=== PATIENT | male | born 1960 | race Caucasian/White ===

== ENCOUNTER 2019-10-31 09:44 | Inpatient (IN) | payer OTHER ==
[~2019-10-31] VITALS: Ht 172.7 cm; Wt 64.0 kg
[2019-10-31 10:35] LABS: Urine Bacteria NONE SEEN /hpf (None Seen); Urine Blood Negative /uL (Negative); Urine Mucus FEW (None Seen); Urine Specific Gravity 1.012 (1.001-1.035); Urine WBC 15 /hpf (0 - 3)
[2019-10-31 10:53] LABS: Basophils # (auto) 0 uL; Basophils % (auto) 0.3 % (0.0-2.0); Eosinophils # (auto) 0 uL; Eosinophils % (auto) 0.1 % (0.0-7.0); Hematocrit 46.5 % (41.0-53.0); Hemoglobin 15.9 g/dL (13.5-17.5); Lymphocytes # (auto) 0.5 uL; Lymphocytes % (auto) 5.2 % (10.0-50.0); Mean Corpuscular Hemoglobin 31.4 pg (28.0-32.0); Mean Corpuscular Hgb Conc. 34.1 g/dL (32.0-36.0); Mean Corpuscular Volume 91.8 fL (80.0-100.0); Monocytes # (auto) 0.8 uL; Neutrophils # (auto) 9.1 uL; Neutrophils % (auto) 86.4 % (37.0-80.0); Platelet Count (auto) 297 10^3/uL (140-450); Red Blood Cells 5.06 10^6/uL (4.5-5.90); Red Cell Distribution Width 13.6 % (11.8-14.3); White Blood Cell 10.5 10^3/uL (4.4-10.8)
[2019-10-31 11:01] LABS: Albumin 4.2 g/dL (3.4-5.0); Calcium 9.5 mg/dL (8.5-10.1); Potassium 4.1 mmol/L (3.5-5.1)
[2019-10-31 11:04] LABS: Bilirubin, Total 0.8 mg/dL (0.2-1.0); Total Protein 8.1 g/dL (6.4-8.2)
[2019-10-31 11:10] LABS: BUN/Creatinine Ratio 21.6
[2019-10-31] MEDS ORDERED: cefTRIAXone 1GM/50ML D5W 50 ML IV ONE (12:30)
[2019-10-31] MEDS ORDERED: MORPHINE SULF INJ 2 MG/ML SYRINGE 1ML IV ONE (12:30)
[2019-10-31] MEDS ORDERED: SODIUM CHLORIDE 0.9% 1,000 ML IVB ONE (12:30)
[2019-10-31] MEDS ORDERED: ONDANSETRON HCL 4 MG/2 ML VIAL IV ONE (12:30)
[2019-10-31 13:01] LABS: Magnesium 2.2 mg/dL (1.6-2.6)
[2019-10-31 13:24] LABS: INR 1.01 (0.9-1.15); Partial Thromboplastin Time 26.2 sec (23.64-32.05)
[2019-10-31] MEDS ORDERED: MORPHINE SULF INJ 2 MG/ML SYRINGE 1ML IV PRN (15:15)
[2019-10-31] MEDS ORDERED: LORazepam 2MG/ML-1ML VIAL IV PRN (15:15)
[2019-10-31] MEDS ORDERED: DEXTROSE (50%) 50ML SYRG IV PRN (15:15)
[2019-10-31] MEDS ORDERED: traMADol HCL 50 MG TAB PO PRN (15:45)
[2019-10-31] MEDS ORDERED: GASTROGRAFIN 120 ML SOL ONE (15:46)
[2019-10-31] MEDS: MORPHINE SULF INJ 2 MG/ML SYRINGE 1ML IV PRN ×2 (16:14→20:57)
[2019-10-31] MEDS: SODIUM CHLORIDE 0.9% 1,000 ML IV SCH (17:30)
[2019-10-31] MEDS: FAMOTIDINE (10MG/ML) 2ML VL IV SCH (17:30)
[2019-10-31] MEDS: PROMETHAZINE HCL 25 MG/ML 1ML IV PRN (17:31)
--- NOTE | 2019-10-31 17:41 | NUR ---
PT ARRIVES UNIT VIA BED. A/OX4. DENIED S/S ACUTE DISTRESS. C/O NAUSEA. MEDICATED PER ORDER.UPDATE PT WITH POC. ORIENTED PT TO ROOM AND MADE COMFORTABLE IN BED. BED AT LOWEST POSITION. CALL LIGHT AND BELONGINGS WITHIN REACH. WILL CONT TO MONITOR.
[2019-10-31] MEDS: ACCU-CHEK COMFORT CURVE STRIP VI SCH (18:00)
[2019-10-31 18:08] VITALS: BP 121/85
--- NOTE | 2019-10-31 18:17 | NUR ---
PT REFUSED NG TUBE PLACEMENT AT THIS TIME.
--- NOTE | 2019-10-31 19:00 | NUR ---
Opening Shift Note Assumed care of patient, awake and alert. No S/S of distress/SOB or pain. Instructed on POC and to call for assist PRN, will continue to monitor for changes Q1hr and PRN.
--- NOTE | 2019-10-31 19:18 | NUR ---
PT RESTING IN BED. NO S/S ACUTE DISTRESS NOTED.ENDORSED CARE TO NIGHT NURSE.
--- NOTE | 2019-10-31 19:30 | NUR ---
Opening Shift Note Assumed care of patient, awake and alert.family on bedside. No S/S of distress/SOB or pain. Instructed on POC and to call for assist PRN, will continue to monitor for changes Q1hr and PRN.
--- NOTE | 2019-10-31 19:45 | NUR ---
Pt nauseated Ozzy hospitalist
--- NOTE | 2019-10-31 20:00 | NUR ---
Received and implemented orders from hospitalist.
[2019-10-31] MEDS: ONDANSETRON HCL 4 MG/2 ML VIAL IV PRN (20:55)
[2019-10-31 22:00] VITALS: BP 137/83
[2019-11-01] MEDS: metroNIDAZOLE 500MG/100ML 100 ML IV SCH ×4 (00:47→22:12)
[2019-11-01] MEDS: PROMETHAZINE HCL 25 MG/ML 1ML IV PRN (00:59)
[2019-11-01] MEDS: MORPHINE SULF INJ 2 MG/ML SYRINGE 1ML IV PRN ×5 (01:00→20:25)
[2019-11-01] MEDS: SODIUM CHLORIDE 0.9% 1,000 ML IV SCH ×3 (01:11→22:11)
[2019-11-01 05:00] VITALS: BP 153/76
[2019-11-01] MEDS: FAMOTIDINE (10MG/ML) 2ML VL IV SCH ×2 (05:19→14:25)
[2019-11-01] MEDS: ONDANSETRON HCL 4 MG/2 ML VIAL IV PRN ×2 (05:19→20:25)
[2019-11-01 05:54] LABS: Basophils # (auto) 0 uL; Basophils % (auto) 0.4 % (0.0-2.0); Eosinophils # (auto) 0 uL; Eosinophils % (auto) 0.4 % (0.0-7.0); Hematocrit 40.3 % (41.0-53.0); Hemoglobin 13.7 g/dL (13.5-17.5); Lymphocytes # (auto) 0.5 uL; Lymphocytes % (auto) 12.9 % (10.0-50.0); Mean Corpuscular Hemoglobin 31.4 pg (28.0-32.0); Mean Corpuscular Hgb Conc. 33.8 g/dL (32.0-36.0); Mean Corpuscular Volume 92.7 fL (80.0-100.0); Monocytes # (auto) 0.7 uL; Monocytes % (auto) 17.2 % (0.0-12.0); Neutrophils # (auto) 2.9 uL; Neutrophils % (auto) 69.1 % (37.0-80.0); Platelet Count (auto) 240 10^3/uL (140-450); Red Blood Cells 4.35 10^6/uL (4.5-5.90); Red Cell Distribution Width 13.3 % (11.8-14.3); White Blood Cell 4.2 10^3/uL (4.4-10.8)
[2019-11-01] MEDS: ACCU-CHEK COMFORT CURVE STRIP VI SCH ×4 (06:00→18:00)
[2019-11-01 06:20] LABS: Albumin 3.2 g/dL (3.4-5.0); Calcium 8.3 mg/dL (8.5-10.1); Potassium 3.7 mmol/L (3.5-5.1)
[2019-11-01 06:24] LABS: Bilirubin, Total 0.5 mg/dL (0.2-1.0); Total Protein 6.5 g/dL (6.4-8.2)
--- NOTE | 2019-11-01 07:40 | NUR ---
Opening Shift Note Assumed care of patient, awake and alert X4. No S/S of distress/SOB or pain. Insructed on POC and to call for assist PRN Call tight within reach, will continue to monitor for changes Q1hr and PRN.
[2019-11-01 08:00] VITALS: BP 120/72
[2019-11-01] MEDS: cefTRIAXone 1GM/50ML D5W 50 ML IV SCH (09:25)
--- NOTE | 2019-11-01 10:19 | NUR ---
patient refused ng tube Patient refusing NG tube due to pain patient informed on use and benefits, DR. Kennedy BASS AT BEDSIDE.
[2019-11-01 12:00] VITALS: BP 115/71
--- NOTE | 2019-11-01 14:20 | NUR ---
DR. Black at bedside.
[2019-11-01] MEDS ORDERED: SORE THROAT SPRAY 6OZ BOTTLE MT PRN (14:30)
[2019-11-01] MEDS ORDERED: BENZOCAINE (DENTAL) 20 % SPRAY 60ML MT ONE (16:00)
--- NOTE | 2019-11-01 16:15 | NUR ---
Rounds Patient comfortably resting in bed, no s/s of distress/sob noted/stated.
[2019-11-01 17:00] VITALS: BP 126/76
--- NOTE | 2019-11-01 17:53 | NUR ---
Nasogastric tube insertion Patient educated on need for NG tube. All questions addressed. NGT inserted per MD order. Chest xray ordered. Addendum: 11/01/19 at 1923 by Marilia Lang RN 18:15 NG TUBE WAS PLACED IN RIGHT NARE, AT 65CM. PATIENT TOLERATED WELL. AWAITING CHEST X-RAY REPORT. ROBERTO CASANOVA AWARE.
--- NOTE | 2019-11-01 19:23 | NUR ---
CLOSING NOTE PATIENT IS COMFORTABLY RESTING IN BED. NO S/S OF DISTRESS/SOB NOTED/STATED. BED AT LOWEST LOCKED POSITION AND CALL LIGHT WITHIN REACH. CARE ENDORSED TO NOC RN.
--- NOTE | 2019-11-01 19:33 | NUR ---
Connected pt on low continuous suction per doctor order after radiology placement confirmation. Pt tolerating well.
[2019-11-01 22:00] VITALS: BP 127/76
[2019-11-02] MEDS: MORPHINE SULF INJ 2 MG/ML SYRINGE 1ML IV PRN ×5 (02:42→22:34)
[2019-11-02 05:00] VITALS: BP 130/80
[2019-11-02] MEDS: FAMOTIDINE (10MG/ML) 2ML VL IV SCH ×2 (05:15→13:23)
[2019-11-02] MEDS: metroNIDAZOLE 500MG/100ML 100 ML IV SCH ×3 (05:40→22:34)
[2019-11-02] MEDS: ACCU-CHEK COMFORT CURVE STRIP VI SCH ×5 (06:00→23:51)
--- NOTE | 2019-11-02 07:00 | NUR ---
Opening Shift Note Assumed care of patient, awake and alert. No S/S of distress/SOB or pain. Insructed on POC and to call for assist PRN call light within reach, will continue to monitor for changes Q1hr and PRN.
[2019-11-02 08:00] VITALS: BP 134/75
[2019-11-02] MEDS: cefTRIAXone 1GM/50ML D5W 50 ML IV SCH (09:28)
[2019-11-02] MEDS: D5W/SOD CHLO 0.9% 1,000 ML IV SCH ×2 (09:31→18:30)
--- NOTE | 2019-11-02 10:35 | NUR ---
ss consult Per ss consult needs PCP. Rosie Luna to see patient for PCP. Addendum: 11/02/19 at 1036 by Rosie BROWN Amended: Links added.
[2019-11-02 12:00] VITALS: BP 123/72
--- NOTE | 2019-11-02 13:05 | NUR ---
NG TUBE PLACEMENT ADVANCED NASOGASTRIC TUBE 10CM PER RADIOLOGY RECHECKED PLACEMENT WITH AIR AND ORDERED NEW X RAY STAT
--- NOTE | 2019-11-02 15:14 | NUR ---
NUTRITION ASSESSMENT NOTES Please refer to link notes of nutrition screen form filed under the intervention section of the plan of care for further details. Est. Needs: 1600 kcal to 1900 kcal (25-30 kcal/kgBW), 64 gms to 77 gms pro (1.0-1.2 gms/kgBW). Will continue to monitor pertinent labs and reassess nutrient need prn Thank you. Addendum: 11/02/19 at [address] Amended: Links added.
[2019-11-02 17:00] VITALS: BP 137/76
--- NOTE | 2019-11-02 19:07 | NUR ---
closing note Patient is comfortably resting in bed. NG tube connected to LCS, no c/o pain. no s/s of distress noted/stated. Bed at lowest locked position and call light within reach. Family at bedside. Will endorse care to NOC RN.
--- NOTE | 2019-11-02 19:30 | NUR ---
Opening Shift Note Received report from oniel Albarran RN. Assumed care of patient, awake and alert. No S/S of distress/SOB but complaints of slight pain across abdomen. NG tube in placed with light yellow mucousy fluid. Will give pain medication as ordered. Instructed on POC and to call for assist PRN, will continue to monitor for changes Q1hr and PRN. Bed placed in lowest position and call light within reach.
[2019-11-02 20:00] VITALS: BP 127/77
[2019-11-02 22:00] VITALS: BP 127/77
[2019-11-02] MEDS: PROMETHAZINE HCL 25 MG/ML 1ML IV PRN (23:45)
[2019-11-03] MEDS: D5W/SOD CHLO 0.9% 1,000 ML IV SCH ×2 (02:19→14:59)
[2019-11-03] MEDS: FAMOTIDINE (10MG/ML) 2ML VL IV SCH ×2 (04:04→14:43)
[2019-11-03 05:00] VITALS: BP 94/55
[2019-11-03] MEDS: metroNIDAZOLE 500MG/100ML 100 ML IV SCH ×3 (06:00→21:17)
[2019-11-03] MEDS: ACCU-CHEK COMFORT CURVE STRIP VI SCH ×3 (06:10→17:30)
--- NOTE | 2019-11-03 06:36 | NUR ---
PATIENT SELF CATH TWICE FOR THE SHIFT, TOTAL OF 700ML OF YELLOW URINE WITH SOME SEDIMENTS. NO DISTRESS NOTED.
--- NOTE | 2019-11-03 06:38 | NUR ---
NG TUBE OUTPUT NG TUBE OUTPUT IS 160ML OF LIGHT YELLOWISH WITH SOME MUCOUS SEDIMENTS. PATIENT IS ALERT AND AWAKE, NO DISTRESS NOTED AND PATIENT DENIES PAIN AND NAUSEA THIS MORNING. WILL MONITOR
[2019-11-03 08:00] VITALS: BP 120/67
[2019-11-03] MEDS: cefTRIAXone 1GM/50ML D5W 50 ML IV SCH (09:34)
--- NOTE | 2019-11-03 09:47 | NUR ---
Phone call received from Dr. Brown Orders received for PT and left hip/pelvis x-ray. No bed available at [facility] for transfer. Addendum: 11/03/19 at 1009 by KAVON TANG RN Incorrect entry, wrong patient
--- NOTE | 2019-11-03 10:00 | NUR ---
Dr. Juarez at bedside.
[2019-11-03] MEDS ORDERED: FUROSEMIDE 40 MG/4 ML VIAL IV ONE (10:30)
[2019-11-03 12:59] VITALS: BP 122/70
[2019-11-03] MEDS: POTASSIUM CHLORIDE 40 MEQ, LIDOCAINE 1% (LOCAL ANESTH.) 4 ML in SODIUM CHL 0.9% 100 ML IV ONE ×2 (13:00→13:28)
--- NOTE | 2019-11-03 16:37 | NUR ---
IV Fluids Received telephone order from Dr. Juarez to administer N/S with 20 MEQ KCL. and repeat BNP in the AM.
[2019-11-03 17:00] VITALS: BP 122/74
[2019-11-03] MEDS: ONDANSETRON HCL 4 MG/2 ML VIAL IV PRN (17:20)
[2019-11-03] MEDS: MORPHINE SULF INJ 2 MG/ML SYRINGE 1ML IV PRN (17:21)
--- NOTE | 2019-11-03 19:15 | NUR ---
Opening Shift Note Received report from oniel Aaron RN. Assumed care of patient, awake and alert. Patient still has NG tube connected to low continuous suction. No S/S of distress/SOB or pain. Instructed on POC and to call for assist PRN, will continue to monitor for changes Q1hr and PRN. Bed placed in lowest position and call light within reach.
[2019-11-03 20:00] VITALS: BP 125/71
[2019-11-03] MEDS: SOD CHL 0.9%/ KCL 20MEQ 1,000 ML IV SCH (21:17)
[2019-11-03 22:00] VITALS: BP 125/71
[2019-11-04] MEDS: FAMOTIDINE (10MG/ML) 2ML VL IV SCH ×2 (03:15→13:39)
[2019-11-04 05:00] VITALS: BP 133/79
[2019-11-04] MEDS: metroNIDAZOLE 500MG/100ML 100 ML IV SCH (05:34)
[2019-11-04] MEDS: SOD CHL 0.9%/ KCL 20MEQ 1,000 ML IV SCH ×3 (06:00→20:24)
[2019-11-04 06:14] LABS: Potassium 3.6 mmol/L (3.5-5.1)
[2019-11-04] MEDS: ACCU-CHEK COMFORT CURVE STRIP VI SCH ×4 (06:25→19:34)
--- NOTE | 2019-11-04 06:41 | NUR ---
NG TUBE OUTPUT NG TUBE OUTPUT IS 230ML OF LIGHT YELLOWISH WITH SOME MUCOUS SEDIMENTS. PATIENT IS ALERT AND AWAKE, NO DISTRESS NOTED AND PATIENT DENIES PAIN AND NAUSEA THIS MORNING. WILL MONITOR
--- NOTE | 2019-11-04 07:30 | NUR ---
Opening Shift Note Assumed care of patient, awake and alert, sitting up in bed. No S/S of distress/SOB or pain. NGT remained in place and NPO status maintained. Patient may have ice chips. Instructed on POC and to call for assist PRN, will continue to monitor for changes Q1hr and PRN.
--- NOTE | 2019-11-04 07:50 | NUR ---
Off Unit Patient at [facility] for renal scan.
--- NOTE | 2019-11-04 09:13 | NUR ---
Hospitalist Erickaing Dr. Juarez at bedside.
--- NOTE | 2019-11-04 09:15 | NUR ---
Dr. Black pageblair
--- NOTE | 2019-11-04 09:19 | NUR ---
Dr. Sofia Black returned telephone call. Orders received to D/C NGT and give clear liquids.
--- NOTE | 2019-11-04 09:30 | NUR ---
NGT removal NGT removed per MD order following explanation and instruction to patient. Patient verbalized understanding prior to removal. Patient tolerated well.
[2019-11-04] MEDS: cefTRIAXone 1GM/50ML D5W 50 ML IV SCH (09:50)
[2019-11-04] MEDS: ONDANSETRON HCL 4 MG/2 ML VIAL IV PRN (11:18)
--- NOTE | 2019-11-04 11:56 | NUR ---
Nutrition Follow-up Notes Wt.: 64.3 kg as of yesterday. Pt's asleep, no signs of distress when rounded this morning. Pt was NPO earlier, noted PSBO is improved, discontinued NGT, per MD's order and to start today on Clear Liquid diet. Est. Needs: 1600 kcal to 1900 kcal (25-30 kcal/kgBW), 64 gms to 77 gms pro (1.0-1.2 gms/kgBW). Will continue to monitor pertinent labs and reassess nutrient need prn Labs: Na 147 H, Cl 117 H, Ca 8.6 L; Alb 3.2 Skin: Girish scale 23, low risk, skin intact per metal gauge maker. GI: Pt had 2x BM yesterday per metal gauge maker. PES: Partially resolved: Increased nutrient needs r/t acute/chronic medical condition aeb Acute abdominal pain,Small bowel obstruction,Urinary (tract) obstruction, mild hypoalbuminemia, NPO. Altered nutrition related lab values r/t current/chronic medical condition aeb hyperchloremia, elev. BUN, hypocalcemia and mild hypoalbuminemia Will continue to monitor PO intake, skin status, pertinent labs and weight trend. F/u in 2 to 3 days. Rec.: 1.) Advance gradually oral diet when medically appropriate. 2.) If still on Clear Liquid diet, consider Ensure Clear 1 carton TID. 3.) Continue close supervision during meals. 4.) If Albumin continues trending down, consider Prostat 1 pkt BID. 5.) Refer pt to RD for further nutrition education and weight monitoring upon discharge. 6.) Continue current plan of care.
[2019-11-04 12:00] VITALS: BP 120/73
[2019-11-04] MEDS: PROMETHAZINE HCL 25 MG/ML 1ML IV PRN ×2 (13:56→17:14)
[2019-11-04] MEDS: MORPHINE SULF INJ 2 MG/ML SYRINGE 1ML IV PRN (13:56)
[2019-11-04] MEDS ORDERED: KETOROLAC TROMETH 30 MG/ML 1ML VIAL IV PRN (14:45)
[2019-11-04 17:00] VITALS: BP 124/79
[2019-11-04 21:42] VITALS: BP 127/80
--- NOTE | 2019-11-05 | NUR ---
PROVIDED PATIENT WITH ADDITIONAL CATHETER'S FOR PERSONAL USE.
[2019-11-05] MEDS: ACCU-CHEK COMFORT CURVE STRIP VI SCH ×3 (00:06→11:29)
[2019-11-05] MEDS: FAMOTIDINE (10MG/ML) 2ML VL IV SCH ×2 (03:15→15:15)
[2019-11-05 04:52] VITALS: BP 131/81
--- NOTE | 2019-11-05 07:43 | NUR ---
Opening Shift Note Assumed care of patient, awake and alert, sitting up in bed uncomplaining. No S/S of distress/SOB or pain. Instructed on POC and to call for assist PRN, will continue to monitor for changes Q1hr and PRN.
[2019-11-05] MEDS: cefTRIAXone 1GM/50ML D5W 50 ML IV SCH (09:17)
[2019-11-05] MEDS: ONDANSETRON HCL 4 MG/2 ML VIAL IV PRN (09:17)
[2019-11-05 09:36] VITALS: BP 122/76
--- NOTE | 2019-11-05 10:10 | NUR ---
Hospitalist Rounding Dr. Juarez rounded on patient. Patient for discharge if cleared by urologist.
[2019-11-05] MEDS: SOD CHL 0.9%/ KCL 20MEQ 1,000 ML IV SCH (11:29)
[2019-11-05 13:00] VITALS: BP 130/79
--- NOTE | 2019-11-05 13:39 | NUR ---
Urologist Called and left message for BEBETO Nelson.
[2019-11-05] MEDS ORDERED: PANTOPRAZOLE 40 MG/10 ML VIAL INJ IV ONE (14:00)
[2019-11-05] MEDS: PROMETHAZINE HCL 25 MG/ML 1ML IV PRN (14:00)
[2019-11-05] MEDS ORDERED: MORPHINE SULF INJ 2 MG/ML SYRINGE 1ML IV ONE (14:00)
--- NOTE | 2019-11-05 15:15 | NUR ---
Urologist Urologist (Omar) rounded on patient. Cleared for discharge.
[2019-11-05 16:33] VITALS: BP 130/79
[2019-11-05 16:51] VITALS: BP 122/74
--- NOTE | 2019-11-05 17:15 | NUR ---
Discharge instructions given as ordered. Encourage to follow up with PMD as instructed. All questions and concerns addressed. Patient verbalized understanding. Medication reconciliation form completed and copy given to patient. IV removed with catheter intact and pressure dressing applied. Patient in room awaiting transportation.
--- NOTE | 2019-11-05 18:15 | NUR ---
Patient already left for home.
== END 2019-11-05 18:00 | disposition home or self-care (01) | DRG 683 ==
LOC: ER 09:44 → OVERFLOW 09:45 → CENTRAL 17:09
PROVIDERS: ADMIT Internal Medicine; ATTEND Family Medicine
DX: N17.9 Acute kidney failure, unspecified (principal); K56.600 Partial intestinal obstruction, unspecified as to cause; K56.7 Ileus, unspecified; N13.6 Pyonephrosis; F17.210 Nicotine dependence, cigarettes, uncomplicated; F12.90 Cannabis use, unspecified, uncomplicated; E86.0 Dehydration; N28.1 Cyst of kidney, acquired; F41.9 Anxiety disorder, unspecified; R73.9 Hyperglycemia, unspecified; Z92.21 Personal history of antineoplastic chemotherapy; Z85.51 Personal history of malignant neoplasm of bladder; Z82.49 Family history of ischemic heart disease and other diseases of the circulatory system; Z90.6 Acquired absence of other parts of urinary tract; Z90.79 Acquired absence of other genital organ(s); Z87.440 Personal history of urinary (tract) infections; Z83.3 Family history of diabetes mellitus; Z79.899 Other long term (current) drug therapy
CPT/HCPCS: 36415; 71045; 74018; 74176; 74250; 78707; 80048; 80053; 81001; 82150; 82962; 83036; 83690; 83735; 84132; 85025; 85610; 85730; 87086; 96365; 96375; C9113; G0378; J0696; J1885; J2001; J2405; J3490; J7042

== ENCOUNTER → 2019-11-18 | Outpatient (CLI) | payer OTHER | END | disposition home or self-care (01) | LOC: LAB 09:30 | PROVIDERS: ATTEND Internal Medicine | DX: Z12.11 Encounter for screening for malignant neoplasm of colon (principal); R73.9 Hyperglycemia, unspecified | CPT/HCPCS: 36415; 84443 ==

== ENCOUNTER → 2019-11-26 | Outpatient (CLI) | payer OTHER | END | disposition home or self-care (01) | LOC: LAB 11:19 | PROVIDERS: ATTEND Internal Medicine | DX: Z12.11 Encounter for screening for malignant neoplasm of colon (principal); R73.9 Hyperglycemia, unspecified | CPT/HCPCS: 82270 ==

== ENCOUNTER 2020-04-22 12:55 | Inpatient (IN) | payer OTHER ==
[~2020-04-22] VITALS: Ht 172.7 cm; Wt 61.0 kg
[2020-04-22] MEDS ORDERED: SODIUM CHLORIDE 0.9% 1,000 ML IV ONE (13:45)
[2020-04-22 13:49] LABS: Urine WBC None Seen /hpf (0 - 3)
[2020-04-22 13:54] LABS: Urine Bacteria NONE SEEN /hpf (None Seen); Urine Blood TRACE /uL (Negative); Urine Specific Gravity 1.015 (1.001-1.035)
[2020-04-22] MEDS ORDERED: KETOROLAC TROMETH 30 MG/ML 1ML VIAL IV ONE (14:00)
[2020-04-22] MEDS ORDERED: ONDANSETRON HCL 4 MG/2 ML VIAL IV ONE (14:00)
[2020-04-22 14:40] LABS: Basophils # (auto) 0 10 ^3/uL (0-0.2); Basophils % (auto) 0.2 % (0.0-2.0); Eosinophils # (auto) 0 10 ^3/uL (0-0.8); Hematocrit 51.7 % (41.0-53.0); Hemoglobin 17.4 g/dL (13.5-17.5); Lymphocytes # (auto) 0.4 10 ^3/uL (0.4-5.4); Lymphocytes % (auto) 4.3 % (10.0-50.0); Mean Corpuscular Hemoglobin 30.1 pg (28.0-32.0); Mean Corpuscular Hgb Conc. 33.7 g/dL (32.0-36.0); Mean Corpuscular Volume 89.3 fL (80.0-100.0); Monocytes # (auto) 1.2 10 ^3/uL (0-1.3); Monocytes % (auto) 13.2 % (0.0-12.0); Neutrophils # (auto) 7.3 10 ^3/uL (1.6-8.6); Neutrophils % (auto) 82.3 % (37.0-80.0); Platelet Count (auto) 282 10^3/uL (140-450); Red Blood Cells 5.79 10^6/uL (4.5-5.90); White Blood Cell 8.9 10^3/uL (4.4-10.8)
[2020-04-22 14:59] LABS: Potassium 3.9 mmol/L (3.5-5.1)
[2020-04-22 15:04] LABS: Albumin 4.1 g/dL (3.4-5.0); Calcium 9.9 mg/dL (8.5-10.1)
[2020-04-22 15:07] LABS: Bilirubin, Total 0.9 mg/dL (0.2-1.0); Total Protein 8.5 g/dL (6.4-8.2)
[2020-04-22] MEDS ORDERED: SODIUM CHLORIDE 0.9% 1,750 ML IV ONE (15:30)
[2020-04-22] MEDS ORDERED: DEXTROSE (50%) 50ML SYRG IV PRN (15:45)
[2020-04-22] MEDS ORDERED: cefTRIAXone 1GM/50ML D5W 50 ML IV ONE (15:45)
[2020-04-22 15:52] LABS: Amylase 141 U/L (25-115); Lipase 172 U/L (73-393)
[2020-04-22] MEDS: SODIUM CHLORIDE 0.9% 1,000 ML IV SCH ×2 (18:47→23:48)
[2020-04-22] MEDS: MORPHINE SULF INJ 2 MG/ML SYRINGE 1ML IV PRN ×2 (18:59→23:37)
[2020-04-22] MEDS: PROMETHAZINE HCL 25 MG/ML 1ML IV PRN ×2 (19:00→23:37)
[2020-04-22] MEDS: ACCU-CHEK COMFORT CURVE STRIP VI SCH (19:10)
--- NOTE | 2020-04-22 20:00 | NUR ---
MS admit from ER CLAUDIA FLAHERTY admitted to tele/MS after SBAR received. Patient oriented to MARY HAY, RN primary RN, unit, room, bed, and unit policies regarding patient care and visiting hours. Patient weighed by bed scale and encouraged to call if they need something. All questions and concerns addressed, patient verbalized understanding. Note: NG tube in place. Patient connected to LIS. IV is patent; running 125 ml/h NaCl 0.9%. NPO. SpO2 100% on 4 LPM. Bed in lowest position. Call light within reach.
[2020-04-22 20:11] VITALS: BP 113/75
[2020-04-22 22:21] VITALS: BP 105/83
[2020-04-22] MEDS: metroNIDAZOLE 500MG/100ML 100 ML IV SCH (22:30)
[2020-04-23 05:00] VITALS: BP 98/67
[2020-04-23] MEDS: ACCU-CHEK COMFORT CURVE STRIP VI SCH ×4 (05:49→18:18)
[2020-04-23] MEDS: metroNIDAZOLE 500MG/100ML 100 ML IV SCH ×3 (05:59→21:40)
[2020-04-23 06:26] LABS: Basophils # (auto) 0 10 ^3/uL (0-0.2); Basophils % (auto) 0.1 % (0.0-2.0); Eosinophils # (auto) 0 10 ^3/uL (0-0.8); Eosinophils % (auto) 0.3 % (0.0-7.0); Hematocrit 45.8 % (41.0-53.0); Hemoglobin 15.4 g/dL (13.5-17.5); Lymphocytes # (auto) 0.6 10 ^3/uL (0.4-5.4); Lymphocytes % (auto) 10.1 % (10.0-50.0); Mean Corpuscular Hemoglobin 30.5 pg (28.0-32.0); Mean Corpuscular Hgb Conc. 33.5 g/dL (32.0-36.0); Mean Corpuscular Volume 90.8 fL (80.0-100.0); Monocytes # (auto) 0.7 10 ^3/uL (0-1.3); Monocytes % (auto) 13.3 % (0.0-12.0); Neutrophils # (auto) 4.2 10 ^3/uL (1.6-8.6); Neutrophils % (auto) 76.2 % (37.0-80.0); Platelet Count (auto) 228 10^3/uL (140-450); Red Blood Cells 5.05 10^6/uL (4.5-5.90); White Blood Cell 5.5 10^3/uL (4.4-10.8)
--- NOTE | 2020-04-23 06:50 | NUR ---
NG tube drain 180 ml of dark brown fluid suctioned from NG tube for 10 hrs.
[2020-04-23 06:59] LABS: Potassium 3.6 mmol/L (3.5-5.1)
[2020-04-23 07:16] LABS: Albumin 3.7 g/dL (3.4-5.0); BUN/Creatinine Ratio 27.3; Bilirubin, Total 0.4 mg/dL (0.2-1.0); Calcium 8.6 mg/dL (8.5-10.1); Total Protein 7.7 g/dL (6.4-8.2)
[2020-04-23] MEDS: SODIUM CHLORIDE 0.9% 1,000 ML IV SCH ×2 (07:30→15:30)
[2020-04-23] MEDS: PROMETHAZINE HCL 25 MG/ML 1ML IV PRN (08:30)
[2020-04-23] MEDS: MORPHINE SULF INJ 2 MG/ML SYRINGE 1ML IV PRN ×2 (08:30→20:44)
[2020-04-23 09:00] VITALS: BP 130/90
[2020-04-23] MEDS: PANTOPRAZOLE 40 MG/10 ML VIAL INJ IV SCH (09:43)
[2020-04-23] MEDS: cefTRIAXone 1GM/50ML D5W 50 ML IV SCH (09:43)
[2020-04-23] MEDS ORDERED: GASTROGRAFIN 120 ML SOL ONE ×2 (10:29→11:32)
[2020-04-23 10:31] LABS: Protein, Urine 115.8 mg/dL (0.0-11.9)
[2020-04-23] MEDS ORDERED: PROMETHAZINE HCL 25 MG/ML 1ML IM ONE (11:30)
[2020-04-23] MEDS ORDERED: PROMETHAZINE HCL 25 MG/ML 1ML IV ONE (11:45)
[2020-04-23 13:00] VITALS: BP 148/77
--- NOTE | 2020-04-23 15:30 | NUR ---
Hospitalist at bedside, aware of patient status including patient having multiple episodes of vomiting despite antinausea medication administration. New orders for antiemetics received, orders read back and verified. Will carry out new orders and cont to monitor patient.
[2020-04-23] MEDS: ONDANSETRON HCL 4 MG/2 ML VIAL IV PRN ×2 (16:12→20:45)
[2020-04-23 17:00] VITALS: BP 137/75
--- NOTE | 2020-04-23 18:18 | NUR ---
Opening Shift Note Assumed care of patient, awake and alert. No S/S of distress/SOB or pain. Instructed on POC and to call for assist PRN, will continue to monitor for changes Q1hr and PRN. Fall precautions in place per safety protocol.
[2020-04-23 18:52] LABS: INR 1.04 (0.9-1.15)
--- NOTE | 2020-04-23 19:17 | NUR ---
Endorsed care to night RN Tiny including status of NG Tube suctioning unknown due to no report on Small bowel series. Per X-Ray tech, they would call to notify if we can connect patient back on suction but no call received. This nurse attempted contacting X-Ray tech but no answer and no report on SBS found.
--- NOTE | 2020-04-23 19:20 | NUR ---
Opening Shift Note Assumed care of patient. Patient is awake, alert, and oriented X 4. No S/S of respiratory distress noted. Respirations are regular, non-labored. No pain, nausea, or vomiting reported. Pt is on RA. NG tube is in L. nostril, intact, and not connected to bed suction at this moment . Bed in lowest possible position, brakes locked, side rails up X 2, call light within reach. POC discussed with the patient. Patient instructed to call for assistance PRN. Will continue to monitor for changes Q1hr and PRN.
[2020-04-23 20:00] VITALS: BP 153/84
[2020-04-23 22:00] VITALS: BP 150/84
[2020-04-24] MEDS: SODIUM CHLORIDE 0.9% 1,000 ML IV SCH ×2 (00:01→07:30)
[2020-04-24] MEDS: ACCU-CHEK COMFORT CURVE STRIP VI SCH ×5 (00:02→23:59)
[2020-04-24] MEDS: MORPHINE SULF INJ 2 MG/ML SYRINGE 1ML IV PRN ×5 (03:13→20:28)
[2020-04-24] MEDS: PROCHLORPERAZINE EDISYLATE 5 MG/ML 2ML VIAL IV PRN ×3 (03:13→20:27)
[2020-04-24 05:00] VITALS: BP 117/68
[2020-04-24] MEDS: metroNIDAZOLE 500MG/100ML 100 ML IV SCH ×3 (05:43→23:23)
[2020-04-24 07:53] LABS: Basophils # (auto) 0 10 ^3/uL (0-0.2); Basophils % (auto) 0.2 % (0.0-2.0); Eosinophils # (auto) 0 10 ^3/uL (0-0.8); Eosinophils % (auto) 0.1 % (0.0-7.0); Hematocrit 49.2 % (41.0-53.0); Hemoglobin 16.4 g/dL (13.5-17.5); Lymphocytes # (auto) 0.7 10 ^3/uL (0.4-5.4); Lymphocytes % (auto) 10.9 % (10.0-50.0); Mean Corpuscular Hemoglobin 30.2 pg (28.0-32.0); Mean Corpuscular Hgb Conc. 33.2 g/dL (32.0-36.0); Mean Corpuscular Volume 90.8 fL (80.0-100.0); Monocytes # (auto) 0.9 10 ^3/uL (0-1.3); Monocytes % (auto) 13.5 % (0.0-12.0); Neutrophils # (auto) 5.1 10 ^3/uL (1.6-8.6); Neutrophils % (auto) 75.3 % (37.0-80.0); Nucleated Red Blood Cells % 0.2 %; Platelet Count (auto) 278 10^3/uL (140-450); Red Blood Cells 5.42 10^6/uL (4.5-5.90); Red Cell Distribution Width 15.5 % (11.8-14.3); White Blood Cell 6.7 10^3/uL (4.4-10.8)
[2020-04-24 08:00] VITALS: BP 150/81
[2020-04-24 08:08] LABS: Albumin 3.9 g/dL (3.4-5.0); Potassium 3.7 mmol/L (3.5-5.1)
[2020-04-24 08:13] LABS: Bilirubin, Total 0.3 mg/dL (0.2-1.0); Phosphorus 3.8 mg/dL (2.5-4.90); Total Protein 7.7 g/dL (6.4-8.2)
[2020-04-24] MEDS: PANTOPRAZOLE 40 MG/10 ML VIAL INJ IV SCH (08:38)
[2020-04-24] MEDS: cefTRIAXone 1GM/50ML D5W 50 ML IV SCH (08:38)
[2020-04-24] MEDS: D5W/SOD CHL 0.45%/KCL 20MEQ 1,000 ML IV SCH (12:57)
[2020-04-24] MEDS: ONDANSETRON HCL 4 MG/2 ML VIAL IV PRN (12:58)
[2020-04-24 13:18] VITALS: BP 143/80
[2020-04-24 17:13] VITALS: BP 149/91
[2020-04-24 20:00] VITALS: BP 145/91
[2020-04-24 23:43] VITALS: BP 143/91
[2020-04-25] MEDS: MORPHINE SULF INJ 2 MG/ML SYRINGE 1ML IV PRN ×8 (00:30→22:36)
[2020-04-25] MEDS: PROCHLORPERAZINE EDISYLATE 5 MG/ML 2ML VIAL IV PRN ×5 (00:31→22:36)
--- NOTE | 2020-04-25 04:00 | NUR ---
TOTAL NASOGASTRIC TUBE DRAINAGE IS 150ML OF GREENISH FLUID. PATIENT CONTINUES TO HAVE ABDOMINAL PAIN OF 8/10. PAIN MEDICATION GIVEN ORDERED WITH GOOD RELIEF.
[2020-04-25] MEDS: D5W/SOD CHL 0.45%/KCL 20MEQ 1,000 ML IV SCH (04:46)
[2020-04-25 05:33] VITALS: BP 146/85
[2020-04-25] MEDS: ACCU-CHEK COMFORT CURVE STRIP VI SCH ×4 (06:00→23:45)
[2020-04-25 06:24] LABS: Basophils # (auto) 0 10 ^3/uL (0-0.2); Basophils % (auto) 0.1 % (0.0-2.0); Eosinophils # (auto) 0 10 ^3/uL (0-0.8); Eosinophils % (auto) 0.5 % (0.0-7.0); Hematocrit 47.4 % (41.0-53.0); Hemoglobin 15.8 g/dL (13.5-17.5); Lymphocytes # (auto) 0.8 10 ^3/uL (0.4-5.4); Lymphocytes % (auto) 8.6 % (10.0-50.0); Mean Corpuscular Hemoglobin 30.5 pg (28.0-32.0); Mean Corpuscular Hgb Conc. 33.3 g/dL (32.0-36.0); Mean Corpuscular Volume 91.8 fL (80.0-100.0); Monocytes % (auto) 10.7 % (0.0-12.0); Neutrophils # (auto) 7.2 10 ^3/uL (1.6-8.6); Neutrophils % (auto) 80.1 % (37.0-80.0); Nucleated Red Blood Cells % 0.1 %; Platelet Count (auto) 225 10^3/uL (140-450); Red Blood Cells 5.16 10^6/uL (4.5-5.90); Red Cell Distribution Width 15.6 % (11.8-14.3)
[2020-04-25] MEDS: metroNIDAZOLE 500MG/100ML 100 ML IV SCH ×3 (06:33→21:28)
[2020-04-25 06:42] LABS: Potassium 3.9 mmol/L (3.5-5.1)
[2020-04-25 06:56] LABS: Albumin 3.5 g/dL (3.4-5.0); BUN/Creatinine Ratio 35.8; Bilirubin, Total 0.3 mg/dL (0.2-1.0); Calcium 8.6 mg/dL (8.5-10.1)
--- NOTE | 2020-04-25 07:30 | NUR ---
Opening Shift Note Assuming care of patient at this time. Patient is resting in bed. No signs or symptoms of distress or shortness of breath. Bed is locked and lowered with side rails up x2. Instructed patient on the plan of care for today and to call for assistance as needed. Call light within reach. Will continue to round hourly and as needed.
[2020-04-25] MEDS: PANTOPRAZOLE 40 MG/10 ML VIAL INJ IV SCH (09:23)
[2020-04-25] MEDS: cefTRIAXone 1GM/50ML D5W 50 ML IV SCH (09:24)
[2020-04-25] MEDS: ONDANSETRON HCL 4 MG/2 ML VIAL IV PRN (09:34)
[2020-04-25 09:36] VITALS: BP 152/94
--- NOTE | 2020-04-25 12:35 | NUR ---
Nutrition Assessment Notes Please refer to link for full assessment notes. Est Energy needs: 5279-1007 kcals (25-30 kcal/kgBW) Est Protein needs: 49-61 gms/day (0.8-1.0 gm/kgBW) Will continue to monitor and reassess prn. Addendum: 04/25/20 at [address] Amended: Links added. Addendum: 04/26/20 at [address] Nutrition NOte: Pt to get PN support @ 53 ml/hr providing 708 kcals and 50 gm proteins 508 NCP. pt with inadequate PN support as it meets 38-46% kcals however meets 81-101% proteins Labs: ALB 3.3 L, TG wnl, PREALB wnl Rec: Advance PN support to meet > 75% of needs
[2020-04-25 12:59] VITALS: BP 145/97
[2020-04-25] MEDS: POTASSIUM CHLORIDE 20 MEQ in D5W 5% 1,000 ML IV SCH ×2 (15:15→19:51)
--- NOTE | 2020-04-25 16:20 | NUR ---
Page to Dr. Ruiz Page to Dr. Ruiz at this time. Patient is requesting ice chips but is ordered to be NPO.
[2020-04-25 16:38] VITALS: BP 141/91
[2020-04-25] MEDS ORDERED: PPN PER PHARMACY 0 ML IV SCH (19:15)
--- NOTE | 2020-04-25 19:30 | NUR ---
Opening Shift Note Received report from oniel Tang RN. Assuming care of patient at this time. Patient is resting in bed. No signs or symptoms of distress or shortness of breath. Bed is locked and lowered with side rails up x2. Instructed patient on the plan of care for today and to call for assistance as needed. Call light within reach. Will continue to round hourly and as needed.
--- NOTE | 2020-04-25 19:30 | NUR ---
Closing Shift Note Patient is resting in bed. No distress noted. Report given. Will endorse care to the machinist 2nd shift RN.
[2020-04-25 20:00] VITALS: BP 149/99
[2020-04-25] MEDS ORDERED: AMINO ACID INFUSION IN D5W 2,000 ML IV NR (20:00)
[2020-04-25 22:00] VITALS: BP 149/99
--- NOTE | 2020-04-25 22:30 | NUR ---
IV insertion IV access obtained, via clean sterile technique by inserting 22 gauge catheter at left forearm after first attempt. IV secured properly. No trauma to site. Patient tolerated well.
[2020-04-25] MEDS: InsuLIN REG 1unit/0.01ml Soln (100units/ml) SC SCH (23:46)
[2020-04-26] MEDS ORDERED: DEXTROSE (50%) 50ML SYRG IV SCH
[2020-04-26] MEDS: MORPHINE SULF INJ 2 MG/ML SYRINGE 1ML IV PRN ×5 (02:47→20:33)
[2020-04-26] MEDS: PROCHLORPERAZINE EDISYLATE 5 MG/ML 2ML VIAL IV PRN ×5 (02:47→20:33)
[2020-04-26 05:00] VITALS: BP 143/81
[2020-04-26] MEDS: metroNIDAZOLE 500MG/100ML 100 ML IV SCH ×3 (05:57→21:23)
[2020-04-26] MEDS: ACCU-CHEK COMFORT CURVE STRIP VI SCH ×3 (06:00→17:50)
[2020-04-26] MEDS: InsuLIN REG 1unit/0.01ml Soln (100units/ml) SC SCH ×4 (06:00→23:53)
--- NOTE | 2020-04-26 06:00 | NUR ---
NG TUBE DRAINAGE DISCARDED 525ML OF BROWNISH GREEN DRAINAGE FROM THE NG TUBE. CANNISTER CHANGED
[2020-04-26 06:39] LABS: Basophils # (auto) 0 10 ^3/uL (0-0.2); Basophils % (auto) 0.1 % (0.0-2.0); Eosinophils # (auto) 0.1 10 ^3/uL (0-0.8); Eosinophils % (auto) 0.5 % (0.0-7.0); Hematocrit 48.2 % (41.0-53.0); Hemoglobin 15.6 g/dL (13.5-17.5); Lymphocytes # (auto) 1.1 10 ^3/uL (0.4-5.4); Lymphocytes % (auto) 8.5 % (10.0-50.0); Mean Corpuscular Hgb Conc. 32.5 g/dL (32.0-36.0); Mean Corpuscular Volume 92.3 fL (80.0-100.0); Monocytes % (auto) 7.9 % (0.0-12.0); Neutrophils # (auto) 10.3 10 ^3/uL (1.6-8.6); Nucleated Red Blood Cells % 0.1 %; Platelet Count (auto) 222 10^3/uL (140-450); Red Blood Cells 5.22 10^6/uL (4.5-5.90); Red Cell Distribution Width 15.3 % (11.8-14.3); White Blood Cell 12.4 10^3/uL (4.4-10.8)
[2020-04-26 06:58] LABS: Albumin 3.3 g/dL (3.4-5.0); Calcium 8.3 mg/dL (8.5-10.1); Potassium 3.8 mmol/L (3.5-5.1)
[2020-04-26 07:05] LABS: BUN/Creatinine Ratio 34.9; Bilirubin, Total 0.3 mg/dL (0.2-1.0); Phosphorus 2.5 mg/dL (2.5-4.90); Pre Albumin 26.8 mg/dL (20.0-40.0); Total Protein 6.9 g/dL (6.4-8.2)
[2020-04-26] MEDS ORDERED: FUROSEMIDE 40 MG/4 ML VIAL IV ONE (08:30)
[2020-04-26 09:03] VITALS: BP 148/85
[2020-04-26] MEDS: PANTOPRAZOLE 40 MG/10 ML VIAL INJ IV SCH (11:04)
[2020-04-26] MEDS: cefTRIAXone 1GM/50ML D5W 50 ML IV SCH (11:04)
[2020-04-26 12:52] VITALS: BP 138/98
--- NOTE | 2020-04-26 13:17 | NUR ---
ASSESSMENT STOPPER SETTER SPOKE WITH PT PER INITIAL ASSESSMENT. PT IS A 60 YR OLD MALE ADMITTED FOR SBO, RENAL FAILURE. PT WAS SEEN FOR SBO OCT 2019 AT [facility] AND DISCHARGED HOME. PT WAS A/A/OX4, RECEPTIVE TO SS VISIT, IN PAIN. PT STATES THAT HE LIVES ALONE BUT HIS SON CAPRI LIVES IN [place] AND HE CAN STAY WITH HIS LONG HE NEEDS TO. PT WAS INDEPENDENT WITH ADL'S PRIOR TO ADMISSION. NO DME. PT'S PCP IS DR. MOMIN. HE DOES NOT HAVE POA OR AHCD, HE DECLINED INFO ON AHCD AT THIS TIME. STOPPER SETTER CONFERRED WITH BEDSIDE RN ESTEFANÍA, NO DC PLAN YET FOR PT, PT CAN DC HOME WITH FAMILY. SS TO CONTINUE TO MONITOR PT PENDING DISPOSITION. Addendum: 04/26/20 at 1323 by HARRY RAMIREZ SS Amended: Links added.
[2020-04-26] MEDS: POTASSIUM CHLORIDE 20 MEQ in D5W 5% 1,000 ML IV SCH ×3 (15:32→20:33)
[2020-04-26 17:25] VITALS: BP 128/98
--- NOTE | 2020-04-26 19:30 | NUR ---
Closing Shift Note Patient is resting in bed. No distress noted. Report given. Will endorse care to the shift commander RN.
[2020-04-26] MEDS ORDERED: PPN PER PHARMACY IV NR ×9 (20:00)
--- NOTE | 2020-04-26 20:00 | NUR ---
Opening Shift Note Assumed care of patient, awake and alert. No S/S of distress/SOB or pain. Instructed on POC and to call for assist PRN, will continue to monitor for changes Q1hr and PRN.NGT in the left nose in placed connected to low intermittent suction drain dark green in color, and started PPN at 53/hour in the left wrist.
[2020-04-26 22:00] VITALS: BP 141/101
[2020-04-27] MEDS: MORPHINE SULF INJ 2 MG/ML SYRINGE 1ML IV PRN ×5 (00:16→22:41)
[2020-04-27] MEDS: PROCHLORPERAZINE EDISYLATE 5 MG/ML 2ML VIAL IV PRN ×3 (00:16→22:41)
[2020-04-27 05:00] VITALS: BP 140/98
[2020-04-27] MEDS: metroNIDAZOLE 500MG/100ML 100 ML IV SCH ×3 (05:30→21:21)
[2020-04-27] MEDS: InsuLIN REG 1unit/0.01ml Soln (100units/ml) SC SCH ×4 (06:00→23:49)
[2020-04-27] MEDS: ACCU-CHEK COMFORT CURVE STRIP VI SCH ×5 (06:00→23:49)
[2020-04-27 07:16] LABS: Albumin 3.5 g/dL (3.4-5.0); Calcium 8.9 mg/dL (8.5-10.1); Magnesium 3.1 mg/dL (1.6-2.6); Phosphorus 3.8 mg/dL (2.5-4.90); Potassium 3.7 mmol/L (3.5-5.1)
[2020-04-27 07:18] LABS: BUN/Creatinine Ratio 35.1
[2020-04-27 07:21] LABS: Bilirubin, Total 0.6 mg/dL (0.2-1.0); Total Protein 7.8 g/dL (6.4-8.2)
--- NOTE | 2020-04-27 07:38 | NUR ---
Care report given to Zafar Baird, and the output of NGT is total 800 cc dark green, change the cannister.
--- NOTE | 2020-04-27 08:00 | NUR ---
Opening Shift Note Assumed care of patient, awake and alert. No S/S of distress/SOB or pain. With NG tube connected to LIS draining to dark green output. Patient stated not having bowel movement still and not passing out gas. Instructed on POC and to call for assist PRN, will continue to monitor for changes Q1hr and PRN.
[2020-04-27 09:10] VITALS: BP 135/90
[2020-04-27] MEDS: PANTOPRAZOLE 40 MG/10 ML VIAL INJ IV SCH (09:25)
[2020-04-27] MEDS: cefTRIAXone 1GM/50ML D5W 50 ML IV SCH (09:25)
[2020-04-27] MEDS: POTASSIUM CHLORIDE 20 MEQ in D5W 5% 1,000 ML IV SCH ×2 (12:43→13:56)
[2020-04-27 13:42] VITALS: BP 138/97
[2020-04-27 16:52] VITALS: BP 138/90
[2020-04-27] MEDS ORDERED: PPN PER PHARMACY IV NR ×8 (20:00)
--- NOTE | 2020-04-27 20:00 | NUR ---
Opening Shift Note Assumed care of patient, awake and alert. No S/S of distress/SOB or pain. Instructed on POC and to call for assist PRN, will continue to monitor for changes Q1hr and PRN.NGT in placed draining dark green output, PPN at 54cc/hour.
[2020-04-27 22:00] VITALS: BP 137/92
[2020-04-28] MEDS: POTASSIUM CHLORIDE 20 MEQ in D5W 5% 1,000 ML IV SCH ×2 (02:52→15:01)
[2020-04-28 05:00] VITALS: BP 135/94
[2020-04-28] MEDS: metroNIDAZOLE 500MG/100ML 100 ML IV SCH ×3 (05:27→21:01)
[2020-04-28] MEDS: ACCU-CHEK COMFORT CURVE STRIP VI SCH ×3 (05:27→18:02)
[2020-04-28] MEDS: InsuLIN REG 1unit/0.01ml Soln (100units/ml) SC SCH ×3 (05:27→18:00)
--- NOTE | 2020-04-28 07:25 | NUR ---
Care report given to Zafar Miller, patient is resting no distress.
[2020-04-28 07:51] LABS: Albumin 3.3 g/dL (3.4-5.0); Calcium 8.7 mg/dL (8.5-10.1); Magnesium 2.3 mg/dL (1.6-2.6); Potassium 3.5 mmol/L (3.5-5.1)
[2020-04-28 07:55] LABS: BUN/Creatinine Ratio 36.3; Bilirubin, Total 0.6 mg/dL (0.2-1.0); Phosphorus 3.2 mg/dL (2.5-4.90); Total Protein 7.4 g/dL (6.4-8.2)
[2020-04-28 09:00] VITALS: BP 123/71
[2020-04-28] MEDS: PANTOPRAZOLE 40 MG/10 ML VIAL INJ IV SCH (09:45)
[2020-04-28] MEDS: MORPHINE SULF INJ 2 MG/ML SYRINGE 1ML IV PRN ×2 (09:45→17:13)
[2020-04-28] MEDS: cefTRIAXone 1GM/50ML D5W 50 ML IV SCH (09:45)
[2020-04-28] MEDS: ONDANSETRON HCL 4 MG/2 ML VIAL IV PRN ×3 (09:45→17:13)
[2020-04-28 14:19] VITALS: BP 119/81
--- NOTE | 2020-04-28 14:52 | NUR ---
Nutrition Followup Notes WT: 62.0 kg Pt was sleeping with no family by bedside. per records bowel obstruction is not resolved through conservative measures, then recommends for pt transfer to a higher level care facility d/t unfamiliarity with pt's neobladder anatomy. pt is currently NPO now initiate on PN support @ 54 ml/hr providing 808 kcals and 50 gm proteins. pt with inadequate PN support as it meets 44-52% kcals however meets 81-101% proteins Est Energy needs: 7089-4886 kcals (25-30 kcal/kgBW), Est Protein needs: 49-61 gms/day (0.8-1.0 gm/kgBW). Will continue to monitor and reassess prn. LABS: BUN 41 H, GLU 116 H, ALB 3.3 L. GI: Pt had 2 BM 04/24 per RN doc. BS: 20 low risk. Refer to wound assessment report for full details. PES: 1) Increased nutrient needs aeb pt is NPO r/t pt with no PO intake 2) Altered nutrition related lab values aeb hyponatremia, hyperglycemia r/e current medical condition Comments Will continue to closely monitor pertinent labs, NPO status, PN tolerance, and skin status prn. Will followup in 2-3 days 1) Continue to closely monitor pt NPO status. 2) Gradually advance pt to oral diet when medically feasible and as tolerated 3) Advance PN support to meet > 75% of needs. 4) Continue current plan of care
--- NOTE | 2020-04-28 19:08 | NUR ---
Opening shift note: Assumed care of patient. Patient is awake, alert and oriented X 4, no s/s of SOB or distress and patient denies pain. Bed in lowest locked position with two side rails raised and call jorgensen within reach. Instructed on POC and encouraged to use call jorgensen. All questions and concerns addressed, patient verbalizes understanding. Will continue to monitor Q1 hr and PRN.
[2020-04-28] MEDS ORDERED: PPN PER PHARMACY IV NR ×9 (20:00)
--- NOTE | 2020-04-28 20:05 | NUR ---
NG canister emptied. Total of 700 ml total. New canister connected to low intermittent suctioning. NG to the left nare patent and draining dark green fluid. Will continue to monitor.
[2020-04-28 22:00] VITALS: BP 127/89
[2020-04-29] MEDS: ACCU-CHEK COMFORT CURVE STRIP VI SCH ×5 (00:12→23:45)
[2020-04-29] MEDS: MORPHINE SULF INJ 2 MG/ML SYRINGE 1ML IV PRN ×4 (01:08→21:27)
[2020-04-29] MEDS: ONDANSETRON HCL 4 MG/2 ML VIAL IV PRN ×4 (01:09→21:27)
--- NOTE | 2020-04-29 03:07 | NUR ---
Right forearm IV infiltrated, lower extremity and hand swollen, heat pack applied. IV removed, catheter tip intact and pressure dressing applied. Patient tolerated well. PPN stopped. Will begin PPN when new IV is established.
[2020-04-29] MEDS: POTASSIUM CHLORIDE 20 MEQ in D5W 5% 1,000 ML IV SCH ×2 (03:53→16:26)
--- NOTE | 2020-04-29 04:00 | NUR ---
New IV: 20 gauge IV started to the right forearm using clean technique. Patient tolerated well and PPN started. Left arm swelling reduced but still swollen and red, ice packs applied. Will continue to monitor.
[2020-04-29 05:00] VITALS: BP 147/75
[2020-04-29] MEDS: metroNIDAZOLE 500MG/100ML 100 ML IV SCH ×3 (05:36→21:24)
[2020-04-29] MEDS: InsuLIN REG 1unit/0.01ml Soln (100units/ml) SC SCH ×5 (05:39→23:45)
[2020-04-29 06:32] LABS: Basophils # (auto) 0 10 ^3/uL (0-0.2); Basophils % (auto) 0.2 % (0.0-2.0); Eosinophils # (auto) 0.1 10 ^3/uL (0-0.8); Eosinophils % (auto) 0.8 % (0.0-7.0); Hemoglobin 16.5 g/dL (13.5-17.5); Lymphocytes # (auto) 1.3 10 ^3/uL (0.4-5.4); Mean Corpuscular Hemoglobin 30.3 pg (28.0-32.0); Mean Corpuscular Hgb Conc. 33.6 g/dL (32.0-36.0); Mean Corpuscular Volume 90.3 fL (80.0-100.0); Monocytes # (auto) 1.2 10 ^3/uL (0-1.3); Monocytes % (auto) 7.9 % (0.0-12.0); Neutrophils # (auto) 13.1 10 ^3/uL (1.6-8.6); Neutrophils % (auto) 83.1 % (37.0-80.0); Nucleated Red Blood Cells % 0.1 %; Platelet Count (auto) 236 10^3/uL (140-450); Red Blood Cells 5.43 10^6/uL (4.5-5.90); Red Cell Distribution Width 14.6 % (11.8-14.3); White Blood Cell 15.7 10^3/uL (4.4-10.8)
[2020-04-29 06:51] LABS: Albumin 3.2 g/dL (3.4-5.0); Calcium 8.6 mg/dL (8.5-10.1); Magnesium 2.5 mg/dL (1.6-2.6); Potassium 3.6 mmol/L (3.5-5.1)
[2020-04-29 06:54] LABS: BUN/Creatinine Ratio 35.5; Bilirubin, Total 0.6 mg/dL (0.2-1.0); Phosphorus 3.2 mg/dL (2.5-4.90); Total Protein 7.2 g/dL (6.4-8.2)
--- NOTE | 2020-04-29 07:30 | NUR ---
Opening Shift Note Assumed care of patient, awake and alert. No S/S of distress/SOB or pain. Instructed on POC and to call for assist PRN, will continue to monitor for changes Q1hr and PRN. Patient has NG tube to left nare. NG to LIS, drainage green.
[2020-04-29] MEDS: PANTOPRAZOLE 40 MG/10 ML VIAL INJ IV SCH (08:35)
[2020-04-29] MEDS: cefTRIAXone 1GM/50ML D5W 50 ML IV SCH (08:44)
[2020-04-29 09:00] VITALS: BP 132/85
[2020-04-29 13:00] VITALS: BP 107/80
--- NOTE | 2020-04-29 16:07 | NUR ---
Dr. Miller in to see patient as hospitalist.
[2020-04-29 17:00] VITALS: BP 123/71
[2020-04-29] MEDS ORDERED: PPN PER PHARMACY IV NR ×9 (20:00)
[2020-04-29 22:00] VITALS: BP 125/79
[2020-04-30] MEDS: ONDANSETRON HCL 4 MG/2 ML VIAL IV PRN ×2 (03:12→10:23)
[2020-04-30] MEDS: MORPHINE SULF INJ 2 MG/ML SYRINGE 1ML IV PRN ×2 (03:18→10:22)
[2020-04-30] MEDS: POTASSIUM CHLORIDE 20 MEQ in D5W 5% 1,000 ML IV SCH (04:55)
[2020-04-30 06:00] VITALS: BP 129/85
[2020-04-30] MEDS: InsuLIN REG 1unit/0.01ml Soln (100units/ml) SC SCH ×2 (06:00→12:00)
[2020-04-30] MEDS: ACCU-CHEK COMFORT CURVE STRIP VI SCH ×2 (06:00→12:17)
[2020-04-30 06:29] LABS: Basophils # (auto) 0 10 ^3/uL (0-0.2); Basophils % (auto) 0.1 % (0.0-2.0); Eosinophils # (auto) 0.2 10 ^3/uL (0-0.8); Hematocrit 46.2 % (41.0-53.0); Hemoglobin 15.2 g/dL (13.5-17.5); Lymphocytes # (auto) 1.1 10 ^3/uL (0.4-5.4); Lymphocytes % (auto) 6.7 % (10.0-50.0); Mean Corpuscular Hemoglobin 29.9 pg (28.0-32.0); Mean Corpuscular Hgb Conc. 32.9 g/dL (32.0-36.0); Mean Corpuscular Volume 90.9 fL (80.0-100.0); Monocytes % (auto) 6.5 % (0.0-12.0); Neutrophils # (auto) 13.4 10 ^3/uL (1.6-8.6); Neutrophils % (auto) 85.7 % (37.0-80.0); Platelet Count (auto) 203 10^3/uL (140-450); Red Blood Cells 5.09 10^6/uL (4.5-5.90); Red Cell Distribution Width 14.5 % (11.8-14.3); White Blood Cell 15.6 10^3/uL (4.4-10.8)
[2020-04-30] MEDS: metroNIDAZOLE 500MG/100ML 100 ML IV SCH ×2 (06:36→14:00)
[2020-04-30 06:50] LABS: Potassium 3.6 mmol/L (3.5-5.1)
[2020-04-30 06:57] LABS: Albumin 2.7 g/dL (3.4-5.0); Bilirubin, Total 0.5 mg/dL (0.2-1.0); Calcium 8.2 mg/dL (8.5-10.1); Magnesium 2.3 mg/dL (1.6-2.6); Phosphorus 2.4 mg/dL (2.5-4.90); Total Protein 6.4 g/dL (6.4-8.2)
--- NOTE | 2020-04-30 07:32 | NUR ---
Report to oncoming RN. During this noc shift, reviewed with pt his need to limit ice chips to avoid diluting his gastric fluids and causing complications. Discussed safety precautions.
[2020-04-30 09:00] VITALS: BP 123/73
[2020-04-30] MEDS: PANTOPRAZOLE 40 MG/10 ML VIAL INJ IV SCH (10:22)
[2020-04-30] MEDS: cefTRIAXone 1GM/50ML D5W 50 ML IV SCH (10:22)
[2020-04-30 12:32] VITALS: BP 125/86
--- NOTE | 2020-04-30 13:30 | NUR ---
DR KUMAR AT BEDSIDE EXPLAINED PLAN OF CARE TO PATIENT TRANSFER TO HIGHER LEVEL OF CARE. PATIENT VERBALIZED UNDERSTANDING. DR KUMAR ATTEMPTED TO CALL FAMILY WITH UPDATE BUT NO ANSWER.
--- NOTE | 2020-04-30 14:12 | NUR ---
PATIENT SAID HE IS LEAVING AMA I REMOVED IV AND NGT HE SAID HIS DAUGHTER IS TAKING HIM TO [facility].
[2020-04-30] MEDS ORDERED: PPN PER PHARMACY IV NR ×10 (20:00)
--- NOTE | 2020-05-01 10:23 | NUR ---
APPRENTICE PLUMBER WEEKEND Did not received a page or call regarding social service consult for transfer to higher level of care.
== END 2020-04-30 16:00 | disposition left against medical advice (07) | DRG 388 ==
LOC: ER 12:55 → OVERFLOW 12:56 → WEST WING 19:40
PROVIDERS: ADMIT Internal Medicine; ATTEND Family Medicine
DX: K56.609 Unspecified intestinal obstruction, unspecified as to partial versus complete obstruction (principal); N17.0 Acute kidney failure with tubular necrosis; E87.0 Hyperosmolality and hypernatremia; N13.30 Unspecified hydronephrosis; N39.0 Urinary tract infection, site not specified; E87.1 Hypo-osmolality and hyponatremia; E11.22 Type 2 diabetes mellitus with diabetic chronic kidney disease; E86.0 Dehydration; F17.210 Nicotine dependence, cigarettes, uncomplicated; F41.9 Anxiety disorder, unspecified; I12.9 Hypertensive chronic kidney disease with stage 1 through stage 4 chronic kidney disease, or unspecified chronic kidney disease; N40.0 Benign prostatic hyperplasia without lower urinary tract symptoms; N18.9 Chronic kidney disease, unspecified; E11.65 Type 2 diabetes mellitus with hyperglycemia; G89.29 Other chronic pain; Z83.3 Family history of diabetes mellitus; Z82.49 Family history of ischemic heart disease and other diseases of the circulatory system; Z85.51 Personal history of malignant neoplasm of bladder; Z90.6 Acquired absence of other parts of urinary tract; Z87.440 Personal history of urinary (tract) infections; M54.5 Low back pain; Z79.4 Long term (current) use of insulin
CPT/HCPCS: 36415; 74018; 74021; 74176; 74250; 76775; 78707; 80053; 81001; 82040; 82150; 82570; 82962; 83036; 83690; 83735; 84100; 84156; 84300; 84443; 84478; 85025; 85610; 87040; 87086; C9113; G0378; J0696; J1815; J1885; J2405; J3490; J7042

== ENCOUNTER → 2020-10-17 | Outpatient (CLI) | payer OTHER ==
[2020-10-17 10:17] LABS: Cholesterol 143 mg/dL (< 200); HDL Cholesterol 50 mg/dL (40-59); LDL Cholesterol 78 mg/dL (< 100); Triglycerides 78 mg/dL (< 150)
== END | disposition home or self-care (01) ==
LOC: LAB 09:19
PROVIDERS: ATTEND Internal Medicine
DX: E78.5 Hyperlipidemia, unspecified (principal)
CPT/HCPCS: 36415; 80061

== ENCOUNTER 2021-08-18 00:26 | Inpatient (IN) | payer OTHER ==
[~2021-08-18] VITALS: Ht 172.7 cm; Wt 64.1 kg
[2021-08-18 01:17] LABS: White Blood Cell 15.7 10^3/uL (4.4-10.8)
[2021-08-18 01:19] LABS: Basophils # (auto) 0.1 10 ^3/uL (0-0.2); Basophils % (auto) 0.5 % (0.0-2.0); Eosinophils # (auto) 0 10 ^3/uL (0-0.8); Eosinophils % (auto) 0.2 % (0.0-7.0); Hematocrit 38.4 % (41.0-53.0); Hemoglobin 12.6 g/dL (13.5-17.5); Lymphocytes # (auto) 0.7 10 ^3/uL (0.4-5.4); Lymphocytes % (auto) 4.2 % (10.0-50.0); Mean Corpuscular Hemoglobin 26.4 pg (28.0-32.0); Mean Corpuscular Hgb Conc. 32.8 g/dL (32.0-36.0); Mean Corpuscular Volume 80.5 fL (80.0-100.0); Monocytes % (auto) 6.4 % (0.0-12.0); Neutrophils # (auto) 13.9 10 ^3/uL (1.6-8.6); Neutrophils % (auto) 88.7 % (37.0-80.0); Red Blood Cells 4.77 10^6/uL (4.5-5.90); Red Cell Distribution Width 17.7 % (11.8-14.3)
[2021-08-18 01:36] LABS: Alanine Aminotransferase 19 U/L (16-61); Albumin 3.5 g/dL (3.4-5.0); Anion Gap 9 (5-15); Aspartate Aminotransferase 14 U/L (15-37); Blood Urea Nitrogen 22 mg/dL (7-18); Carbon Dioxide 22 mmol/L (21-32); Chloride 109 mmol/L (98-107); GFR African American 78 mL/min; GFR Non-African American 64 mL/min; Glucose 110 mg/dL (74-106); Lipase 350 U/L (73-393); Sodium 140 mmol/L (136-145)
[2021-08-18 01:41] LABS: Alkaline Phosphatase 97 U/L (45-117); Bilirubin, Total 0.4 mg/dL (0.2-1.0); Total Protein 7.2 g/dL (6.4-8.2)
[2021-08-18 07:43] LABS: Urine Bacteria FEW /hpf (None Seen); Urine Blood 3+ /uL (Negative); Urine Hyaline Cast MANY /lpf (0 - 2); Urine Specific Gravity 1.017 (1.001-1.035); Urine WBC 3306 /hpf (0 - 3); Urine WBC Clumps PRESENT /hpf (None Seen)
[2021-08-18] MEDS ORDERED: MORPHINE SULFATE 4 MG/ML SYR/VIAL IV ONE (08:30)
[2021-08-18] MEDS ORDERED: ONDANSETRON HCL 4 MG/2 ML VIAL IV ONE (08:30)
[2021-08-18] MEDS ORDERED: MORPHINE SULFATE INJECTION 2 MG/ML SYRG IV PRN ×2 (11:45→12:00)
[2021-08-18] MEDS ORDERED: CEFTRIAXONE SODIUM 2 GM in D5W 5% 50 ML IV ONE (11:45)
[2021-08-18] MEDS ORDERED: LACTATED RINGER'S 1,000 ML IV ONE (11:45)
[2021-08-18] MEDS ORDERED: NITROGLYCERIN 0.4 MG SL TAB SL PRN ×2 (11:45→12:00)
[2021-08-18] MEDS ORDERED: ALUM & MAG HYDROX-SIMETH LIQ(MAALOX) 30 ML PO PRN (12:00)
[2021-08-18] MEDS ORDERED: LORazepam 0.5 MG TAB PO PRN (12:00)
[2021-08-18] MEDS: LACTATED RINGER'S 1,000 ML IV SCH ×2 (12:00→18:35)
[2021-08-18] MEDS ORDERED: ACETAMINOPHEN 325 MG TAB PO PRN (12:00)
[2021-08-18] MEDS ORDERED: ONDANSETRON HCL 4 MG/2 ML VIAL IV PRN (12:00)
[2021-08-18] MEDS ORDERED: DOCUSATE SOD 100 MG CAP PO PRN (12:00)
[2021-08-18 14:33] LABS: INR 1.06 (0.9-1.15); Partial Thromboplastin Time 27.3 sec (23.6-33.0)
[2021-08-18 14:45] LABS: Cholesterol 135 mg/dL (< 200); HDL Cholesterol 65 mg/dL (40-59); LDL Cholesterol 70 mg/dL (< 100); Triglycerides 63 mg/dL (< 150)
[2021-08-18] MEDS: HYDROcodone-ACET 5/325MG TAB PO PRN ×2 (15:18→20:40)
[2021-08-18 15:25] LABS: Alcohol, Urine < 3.0 mg/dL (0-10); Amphetamine Screen, Urine NEGATIVE (NEGATIVE); Barbiturate Scree,Urine NEGATIVE (NEGATIVE); Benzodiazephine Screen, Urine NEGATIVE (NEGATIVE); Cannabinoid Screen, Urine POSITIVE (NEGATIVE); Cocaine Screen, Urine NEGATIVE (NEGATIVE); Opiate Scree,Urine NEGATIVE (NEGATIVE); Phencyclidine Screen, Urine NEGATIVE (NEGATIVE)
[2021-08-18 17:00] VITALS: BP 121/79
[2021-08-18] MEDS: FAMOTIDINE (10MG/ML) 2ML VL IV SCH (20:55)
[2021-08-18 22:00] VITALS: BP 103/65
[2021-08-19 05:00] VITALS: BP 104/77
[2021-08-19] MEDS: FAMOTIDINE (10MG/ML) 2ML VL IV SCH ×2 (08:16→20:59)
[2021-08-19] MEDS: LACTATED RINGER'S 1,000 ML IV SCH (08:17)
[2021-08-19] MEDS: ENOXAPARIN SOD 40 MG/0.4 ML SYRINGE SC SCH (08:17)
[2021-08-19 09:00] VITALS: BP 108/67
[2021-08-19] MEDS: CEFTRIAXONE SODIUM 2 GM in D5W 5% 50 ML IV SCH (09:26)
[2021-08-19 11:49] LABS: Eosinophils # (auto) 0.2 10 ^3/uL (0-0.8); Lymphocytes # (auto) 1.4 10 ^3/uL (0.4-5.4); Monocytes # (auto) 0.7 10 ^3/uL (0-1.3)
[2021-08-19 11:52] LABS: Basophils # (auto) 0.1 10 ^3/uL (0-0.2); Basophils % (auto) 0.9 % (0.0-2.0); Eosinophils % (auto) 2.7 % (0.0-7.0); Hematocrit 35.2 % (41.0-53.0); Hemoglobin 11.5 g/dL (13.5-17.5); Lymphocytes % (auto) 21.1 % (10.0-50.0); Mean Corpuscular Hemoglobin 26.3 pg (28.0-32.0); Mean Corpuscular Hgb Conc. 32.8 g/dL (32.0-36.0); Mean Corpuscular Volume 80.2 fL (80.0-100.0); Monocytes % (auto) 9.7 % (0.0-12.0); Neutrophils # (auto) 4.5 10 ^3/uL (1.6-8.6); Neutrophils % (auto) 65.6 % (37.0-80.0); Red Blood Cells 4.39 10^6/uL (4.5-5.90); Red Cell Distribution Width 17.5 % (11.8-14.3); White Blood Cell 6.8 10^3/uL (4.4-10.8)
[2021-08-19 12:06] LABS: Albumin 2.8 g/dL (3.4-5.0); Anion Gap 2 (5-15); Blood Urea Nitrogen 18 mg/dL (7-18); Calcium 8.3 mg/dL (8.5-10.1); Carbon Dioxide 26 mmol/L (21-32); Chloride 109 mmol/L (98-107); Glucose 69 mg/dL (74-106); Magnesium 2.3 mg/dL (1.6-2.6); Sodium 137 mmol/L (136-145)
[2021-08-19 12:08] LABS: INR 1.06 (0.9-1.15); Partial Thromboplastin Time 31.1 sec (23.6-33.0)
[2021-08-19 12:14] LABS: Alanine Aminotransferase 15 U/L (16-61); Alkaline Phosphatase 80 U/L (45-117); Aspartate Aminotransferase 9 U/L (15-37); BUN/Creatinine Ratio 15.8; Bilirubin, Total 0.2 mg/dL (0.2-1.0); GFR African American 84 mL/min; GFR Non-African American 69 mL/min; Phosphorus 2.3 mg/dL (2.5-4.90); Total Protein 6.4 g/dL (6.4-8.2)
[2021-08-19 13:13] VITALS: BP 108/71
[2021-08-19 16:35] VITALS: BP 111/72
[2021-08-19 22:00] VITALS: BP 111/68
[2021-08-20 05:00] VITALS: BP_SYST 122; BP_SYST 156; BP_DIAS 76; BP_DIAS 88
[2021-08-20] MEDS ORDERED: FUROSEMIDE 40 MG/4 ML VIAL IV ONE (08:15)
[2021-08-20 09:00] VITALS: BP 124/67
[2021-08-20] MEDS: CEFTRIAXONE SODIUM 2 GM in D5W 5% 50 ML IV SCH (10:51)
[2021-08-20] MEDS: FAMOTIDINE (10MG/ML) 2ML VL IV SCH ×2 (10:51→21:59)
[2021-08-20] MEDS: ENOXAPARIN SOD 40 MG/0.4 ML SYRINGE SC SCH (13:55)
[2021-08-20 17:00] VITALS: BP 117/82
[2021-08-20 21:50] VITALS: BP 118/73
[2021-08-21] VITALS (10 sets, daily range): BP systolic 117–130; BP diastolic 73–92
[2021-08-21 08:28] LABS: INR 1.05 (0.9-1.15); Partial Thromboplastin Time 26.6 sec (23.6-33.0)
[2021-08-21] MEDS: FAMOTIDINE (10MG/ML) 2ML VL IV SCH ×2 (09:29→20:48)
[2021-08-21] MEDS: CEFTRIAXONE SODIUM 2 GM in D5W 5% 50 ML IV SCH ×2 (09:30→13:45)
[2021-08-21] MEDS: ENOXAPARIN SOD 40 MG/0.4 ML SYRINGE SC SCH (09:30)
[2021-08-21] MEDS ORDERED: fentaNYL CITRATE 100 MCG/2 ML VL ONE (11:29)
[2021-08-21] MEDS ORDERED: MIDAZOLAM HCL 2MG/2ML 2ml VIAL (1mg/ml) ONE (11:29)
[2021-08-21] MEDS ORDERED: LIDOCAINE 2%HCL (LOCAL ANESTH.) INJ 20ML MDV ONE (11:29)
[2021-08-21] MEDS: HYDROcodone-ACET 5/325MG TAB PO PRN (15:17)
[2021-08-21] MEDS: MORPHINE SULFATE INJECTION 2 MG/ML SYRG IV PRN ×2 (18:16→20:49)
[2021-08-22] MEDS: MORPHINE SULFATE INJECTION 2 MG/ML SYRG IV PRN (00:54)
[2021-08-22 05:00] VITALS: BP 120/74
[2021-08-22 07:22] LABS: Hematocrit 37.6 % (41.0-53.0); Lymphocytes # (auto) 1.2 10 ^3/uL (0.4-5.4); Monocytes # (auto) 0.7 10 ^3/uL (0-1.3); Neutrophils # (auto) 5.9 10 ^3/uL (1.6-8.6); White Blood Cell 8.1 10^3/uL (4.4-10.8)
[2021-08-22 07:25] LABS: Basophils # (auto) 0.1 10 ^3/uL (0-0.2); Basophils % (auto) 0.7 % (0.0-2.0); Eosinophils # (auto) 0.3 10 ^3/uL (0-0.8); Eosinophils % (auto) 3.2 % (0.0-7.0); Hemoglobin 12.4 g/dL (13.5-17.5); Lymphocytes % (auto) 14.3 % (10.0-50.0); Mean Corpuscular Hemoglobin 26.5 pg (28.0-32.0); Mean Corpuscular Hgb Conc. 33.1 g/dL (32.0-36.0); Mean Corpuscular Volume 80.1 fL (80.0-100.0); Monocytes % (auto) 9.2 % (0.0-12.0); Neutrophils % (auto) 72.6 % (37.0-80.0); Red Blood Cells 4.69 10^6/uL (4.5-5.90); Red Cell Distribution Width 17.1 % (11.8-14.3)
[2021-08-22 07:28] LABS: Potassium 4.8 mmol/L (3.5-5.1)
[2021-08-22 07:31] LABS: BUN/Creatinine Ratio 22.5; Calcium 8.7 mg/dL (8.5-10.1); Magnesium 2.3 mg/dL (1.6-2.6); Phosphorus 2.9 mg/dL (2.5-4.90)
[2021-08-22 09:00] VITALS: BP 111/78
[2021-08-22] MEDS: FAMOTIDINE (10MG/ML) 2ML VL IV SCH (09:04)
[2021-08-22] MEDS: HYDROcodone-ACET 5/325MG TAB PO PRN (09:05)
[2021-08-22] MEDS: CEFTRIAXONE SODIUM 2 GM in D5W 5% 50 ML IV SCH (10:00)
[2021-08-22] MEDS: ENOXAPARIN SOD 40 MG/0.4 ML SYRINGE SC SCH (10:00)
[2021-08-22] MEDS ORDERED: LEVO500T31 PO (10:34)
[2021-08-22 11:48] VITALS: BP 111/78
[2021-08-22 13:00] VITALS: BP 136/49
== END 2021-08-22 13:30 | disposition home or self-care (01) | DRG 690 ==
LOC: ER 00:26 → OVERFLOW 11:36 → EAST 17:07
PROVIDERS: ADMIT Hospitalist; ATTEND Internal Medicine
PROC: 0T9130Z Drainage of Left Kidney with Drainage Device, Percutaneous Approach (ICD-10-PCS; principal; 2021-08-21)
PROC: BT1F1ZZ Fluoroscopy of Left Kidney, Ureter and Bladder using Low Osmolar Contrast (ICD-10-PCS; 2021-08-21)
PROC: BT42ZZZ Ultrasonography of Left Kidney (ICD-10-PCS; 2021-08-21)
DX: N13.6 Pyonephrosis (principal); R65.10 Systemic inflammatory response syndrome (SIRS) of non-infectious origin without acute organ dysfunction; D64.9 Anemia, unspecified; N17.9 Acute kidney failure, unspecified; E11.22 Type 2 diabetes mellitus with diabetic chronic kidney disease; F17.210 Nicotine dependence, cigarettes, uncomplicated; I12.9 Hypertensive chronic kidney disease with stage 1 through stage 4 chronic kidney disease, or unspecified chronic kidney disease; Z20.822 Contact with and (suspected) exposure to COVID-19; R00.1 Bradycardia, unspecified; N18.2 Chronic kidney disease, stage 2 (mild); Z82.49 Family history of ischemic heart disease and other diseases of the circulatory system; Z83.3 Family history of diabetes mellitus; Z85.51 Personal history of malignant neoplasm of bladder; Z87.442 Personal history of urinary calculi; Z90.6 Acquired absence of other parts of urinary tract; Z93.6 Other artificial openings of urinary tract status
CPT/HCPCS: 36415; 50432; 74176; 74425; 76942; 78707; 80048; 80053; 80061; 80307; 81001; 83036; 83690; 83735; 83880; 84100; 84443; 84484; 85025; 85610; 85730; 87040; 87086; 87426; 93005; 96361; 96365; 96375; 99152; C1729; G0378; J0696; J2250; J2405; J3490; J7060

== ENCOUNTER 2023-06-03 09:00 | Emergency (ER) | payer OTHER ==
[~2023-06-03] VITALS: Ht 172.7 cm; Wt 62.0 kg
[~2023-06-03 09:00] MED LIST: LEVO500T31 PO
[2023-06-03 09:12] VITALS: BP 128/77; PULSE 76; RESP 16; TEMP 98.1; O2SAT 97
[2023-06-03] MEDS ORDERED: KETOROLAC TROMETH 30 MG/ML 1ML VIAL IM ONE (10:15)
[2023-06-03] MEDS ORDERED: CYCL-837 PO (11:27)
== END 2023-06-03 11:41 | disposition home or self-care (01) ==
LOC: ER 09:00
DX: M54.50 Low back pain, unspecified (principal); G89.29 Other chronic pain; F17.210 Nicotine dependence, cigarettes, uncomplicated; Z79.2 Long term (current) use of antibiotics; Z79.899 Other long term (current) drug therapy
CPT/HCPCS: 72100; 96372; 99283; J1885

== ENCOUNTER → 2023-10-01 | Outpatient (CLI) | payer OTHER ==
[~2023-10-01] MED LIST changes: +CYCL-837 PO
[2023-10-01 08:34] LABS: Basophils # (auto) 0 10 ^3/uL (0-0.2); Basophils % (auto) 0.5 % (0.0-2.0); Eosinophils # (auto) 0.2 10 ^3/uL (0-0.8); Eosinophils % (auto) 2.4 % (0.0-7.0); Hematocrit 45.5 % (41.0-53.0); Hemoglobin 15.2 g/dL (13.5-17.5); Lymphocytes # (auto) 1.3 10 ^3/uL (0.4-5.4); Lymphocytes % (auto) 18.2 % (10.0-50.0); Mean Corpuscular Hemoglobin 31.2 pg (28.0-32.0); Mean Corpuscular Hgb Conc. 33.4 g/dL (32.0-36.0); Mean Corpuscular Volume 93.6 fL (80.0-100.0); Monocytes # (auto) 0.4 10 ^3/uL (0-1.3); Monocytes % (auto) 6.1 % (0.0-12.0); Neutrophils % (auto) 72.8 % (37.0-80.0); Red Blood Cells 4.87 10^6/uL (4.5-5.90); Red Cell Distribution Width 14.1 % (11.8-14.3); White Blood Cell 6.9 10^3/uL (4.4-10.8)
[2023-10-01 10:28] LABS: Alanine Aminotransferase 17 U/L (7-40); Alkaline Phosphatase 89 U/L (46-116); Anion Gap 5 (5-15); BUN/Creatinine Ratio 16.3 (10.0-20.0); Blood Urea Nitrogen 14 mg/dL (9-23); Calcium 9.2 mg/dL (8.5-10.1); Carbon Dioxide 27 mmol/L (20-30); Chloride 110 mmol/L (98-107); Glucose 105 mg/dL (74-106); Potassium 4.1 mmol/L (3.5-5.1); Sodium 142 mmol/L (136-145); Triglycerides 62 mg/dL (< 150)
[2023-10-01 10:29] LABS: LDL Cholesterol 86 mg/dL (< 100)
[2023-10-01 10:30] LABS: Albumin 4.3 g/dL (3.2-4.8); Aspartate Aminotransferase 12 U/L (13-40); Bilirubin, Total 0.5 mg/dL (0.2-1.0); Cholesterol 137 mg/dL (< 200); HDL Cholesterol 44 mg/dL (40-59); Total Protein 6.5 g/dL (5.7-8.2)
== END | disposition home or self-care (01) ==
LOC: LAB 08:15
PROVIDERS: ATTEND Internal Medicine
DX: Z12.11 Encounter for screening for malignant neoplasm of colon (principal); Z00.00 Encounter for general adult medical examination without abnormal findings; Z85.51 Personal history of malignant neoplasm of bladder; R73.03 Prediabetes
CPT/HCPCS: 36415; 80053; 80061; 83036; 85025

== ENCOUNTER → 2024-04-20 | Outpatient (CLI) | payer BC ==
[2024-04-20 16:48] LABS: Alanine Aminotransferase 13 U/L (7-40); Albumin 4.2 g/dL (3.2-4.8); Alkaline Phosphatase 102 U/L (46-116); Anion Gap 7 (5-15); Aspartate Aminotransferase 10 U/L (13-40); BUN/Creatinine Ratio 14.6 (10.0-20.0); Bilirubin, Total 0.4 mg/dL (0.2-1.0); Blood Urea Nitrogen 14 mg/dL (9-23); Calcium 9.2 mg/dL (8.5-10.1); Carbon Dioxide 23 mmol/L (20-30); Chloride 111 mmol/L (98-107); Glucose 87 mg/dL (74-106); Potassium 3.8 mmol/L (3.5-5.1); Sodium 141 mmol/L (136-145); Total Protein 6.4 g/dL (5.7-8.2)
== END | disposition home or self-care (01) ==
LOC: LAB 16:11
PROVIDERS: ATTEND Internal Medicine
DX: R22.0 Localized swelling, mass and lump, head (principal); F17.200 Nicotine dependence, unspecified, uncomplicated
CPT/HCPCS: 36415; 80053

== ENCOUNTER → 2024-05-28 | Outpatient (CLI) | payer BC ==
[2024-05-28 10:24] LABS: Basophils # (auto) 0.1 10 ^3/uL (0-0.2); Basophils % (auto) 0.6 % (0.0-2.0); Eosinophils # (auto) 0.1 10 ^3/uL (0-0.8); Eosinophils % (auto) 0.9 % (0.0-7.0); Hematocrit 43.9 % (41.0-53.0); Hemoglobin 15.1 g/dL (13.5-17.5); Lymphocytes # (auto) 1.7 10 ^3/uL (0.4-5.4); Lymphocytes % (auto) 15.8 % (10.0-50.0); Mean Corpuscular Hemoglobin 31.5 pg (28.0-32.0); Mean Corpuscular Hgb Conc. 34.3 g/dL (32.0-36.0); Mean Corpuscular Volume 91.8 fL (80.0-100.0); Monocytes # (auto) 0.6 10 ^3/uL (0-1.3); Monocytes % (auto) 5.3 % (0.0-12.0); Neutrophils # (auto) 8.4 10 ^3/uL (1.6-8.6); Neutrophils % (auto) 77.4 % (37.0-80.0); Red Blood Cells 4.79 10^6/uL (4.5-5.90); Red Cell Distribution Width 14.1 % (11.8-14.3); White Blood Cell 10.9 10^3/uL (4.4-10.8)
[2024-05-28 11:10] LABS: Alanine Aminotransferase 10 U/L (7-40); Albumin 4.2 g/dL (3.2-4.8); Alkaline Phosphatase 102 U/L (46-116); Anion Gap 7 (5-15); Aspartate Aminotransferase < 8 U/L (13-40); BUN/Creatinine Ratio 15.4 (10.0-20.0); Bilirubin, Total 0.4 mg/dL (0.2-1.0); Blood Urea Nitrogen 14 mg/dL (9-23); Carbon Dioxide 24 mmol/L (20-30); Chloride 110 mmol/L (98-107); Glucose 90 mg/dL (74-106); Potassium 3.8 mmol/L (3.5-5.1); Sodium 141 mmol/L (136-145); Total Protein 6.3 g/dL (5.7-8.2)
== END | disposition home or self-care (01) ==
LOC: LAB 10:04
PROVIDERS: ATTEND Internal Medicine
DX: R22.0 Localized swelling, mass and lump, head (principal); R73.03 Prediabetes
CPT/HCPCS: 36415; 80053; 85025

== ENCOUNTER → 2024-06-01 | Outpatient (CLI) | payer BC | END | disposition home or self-care (01) | LOC: US 10:48 | PROVIDERS: ATTEND Internal Medicine | DX: D11.0 Benign neoplasm of parotid gland (principal); F17.210 Nicotine dependence, cigarettes, uncomplicated; Z82.49 Family history of ischemic heart disease and other diseases of the circulatory system; Z83.3 Family history of diabetes mellitus | CPT/HCPCS: 42400; 76942 ==

== ENCOUNTER → 2024-12-09 | Outpatient (CLI) | payer BC ==
[2024-12-09 10:29] LABS: Basophils # (auto) 0.1 10 ^3/uL (0-0.2); Basophils % (auto) 0.9 % (0.0-2.0); Eosinophils # (auto) 0.1 10 ^3/uL (0-0.8); Eosinophils % (auto) 1.5 % (0.0-7.0); Hemoglobin 15.2 g/dL (13.5-17.5); Lymphocytes # (auto) 1.4 10 ^3/uL (0.4-5.4); Lymphocytes % (auto) 17.7 % (10.0-50.0); Mean Corpuscular Hemoglobin 31.1 pg (28.0-32.0); Mean Corpuscular Hgb Conc. 33.7 g/dL (32.0-36.0); Mean Corpuscular Volume 92.4 fL (80.0-100.0); Monocytes # (auto) 0.5 10 ^3/uL (0-1.3); Monocytes % (auto) 6.6 % (0.0-12.0); Neutrophils # (auto) 5.6 10 ^3/uL (1.6-8.6); Neutrophils % (auto) 73.3 % (37.0-80.0); Platelet Count (auto) 232 10^3/uL (140-450); Red Blood Cells 4.87 10^6/uL (4.5-5.90); Red Cell Distribution Width 13.8 % (11.8-14.3); White Blood Cell 7.6 10^3/uL (4.4-10.8)
[2024-12-09 11:49] LABS: Triglycerides 73 mg/dL (< 150)
[2024-12-09 11:50] LABS: LDL Cholesterol 98 mg/dL (< 100)
[2024-12-09 11:51] LABS: Cholesterol 160 mg/dL (< 200)
[2024-12-09 11:59] LABS: HDL Cholesterol 54 mg/dL (40-59)
== END | disposition home or self-care (01) ==
LOC: LAB 10:05
PROVIDERS: ATTEND Internal Medicine
DX: Z12.5 Encounter for screening for malignant neoplasm of prostate (principal); Z12.11 Encounter for screening for malignant neoplasm of colon; R22.0 Localized swelling, mass and lump, head
CPT/HCPCS: 36415; 80061; 84153; 85025

== ENCOUNTER 2025-07-05 14:46 | Outpatient (CLI) | payer BC ==
[2025-07-05 15:51] LABS: Alanine Aminotransferase 14 U/L (7-40); Albumin 4.2 g/dL (3.2-4.8); Alkaline Phosphatase 103 U/L (46-116); Anion Gap 9 (5-15); BUN/Creatinine Ratio 18.5 (10.0-20.0); Bilirubin, Total 0.5 mg/dL (0.2-1.0); Blood Urea Nitrogen 17 mg/dL (9-23); Calcium 8.5 mg/dL (8.7-10.4); Carbon Dioxide 22 mmol/L (20-31); Chloride 112 mmol/L (98-107); Glucose 106 mg/dL (74-106); Potassium 3.9 mmol/L (3.5-5.1); Sodium 143 mmol/L (136-145); Total Protein 6.5 g/dL (5.7-8.2)
== END 2025-07-05 17:00 | disposition home or self-care (01) ==
LOC: LAB 14:46
PROVIDERS: ATTEND Internal Medicine
DX: R73.03 Prediabetes (principal); K11.8 Other diseases of salivary glands; F17.200 Nicotine dependence, unspecified, uncomplicated; Z85.51 Personal history of malignant neoplasm of bladder
CPT/HCPCS: 36415; 80053; 82306; 82607; 83036; 84443

== ENCOUNTER 2025-07-11 15:08 | Outpatient (CLI) | payer BC | END 2025-07-11 17:00 | disposition home or self-care (01) | LOC: LAB 15:08 | PROVIDERS: ATTEND Internal Medicine | DX: R73.03 Prediabetes (principal); K11.8 Other diseases of salivary glands; F17.200 Nicotine dependence, unspecified, uncomplicated; Z85.51 Personal history of malignant neoplasm of bladder | CPT/HCPCS: 82270 ==